=== PATIENT | male | born 1970 | race Two or more races ===

== ENCOUNTER 2017-02-25 23:19 | Emergency (ER) | payer MEDICAID, MEDICARE ==
[~2017-02-25] VITALS: Ht 167.6 cm; Wt 93.4 kg
[~2017-02-25 23:19] MED LIST: HYDR-3326 PO
--- NOTE | 2017-02-26 01:29 | NUR ---
Patient discharged to home in stable conditon. Written and verbal after care instructions given. Patient verbalizes understanding of instructions.
== END 2017-02-26 01:30 | disposition home or self-care (01) ==
LOC: ER 23:25
DX: S62.501B Fracture of unspecified phalanx of right thumb, initial encounter for open fracture (principal); Z88.6 Allergy status to analgesic agent; X58.XXXA Exposure to other specified factors, initial encounter; Y93.89 Activity, other specified; Y99.8 Other external cause status; Y92.89 Other specified places as the place of occurrence of the external cause
CPT/HCPCS: 29125; 73140; 99284; A4663

== ENCOUNTER 2017-11-25 13:48 | Emergency (ER) | payer MEDICARE ==
[~2017-11-25] VITALS: Ht 167.6 cm; Wt 90.7 kg
[2017-11-25 14:36] VITALS: BP 144/88
--- NOTE | 2017-11-25 14:36 | NUR ---
Patient discharged to home in stable conditon. Written and verbal after care instructions given. Patient verbalizes understanding of instructions.
== END 2017-11-25 14:40 | disposition home or self-care (01) ==
LOC: ER 13:48
DX: G89.29 Other chronic pain (principal); M10.9 Gout, unspecified; Z88.5 Allergy status to narcotic agent; Z98.890 Other specified postprocedural states
CPT/HCPCS: A4663

== ENCOUNTER 2019-05-31 04:21 | Emergency (ER) | payer MEDICAID, MEDICARE ==
[~2019-05-31] VITALS: Ht 167.6 cm; Wt 95.3 kg
[2019-05-31] MEDS ORDERED: HYDROMORPHONE 1 MG/1 ML DISP.SYRIN IV ONE (04:45)
[2019-05-31] MEDS ORDERED: IV NORMAL SALINE 1000 ML BAG IV ONE (04:45)
[2019-05-31] MEDS ORDERED: ONDANSETRON 4 MG/2 ML VIAL IV ONE (04:45)
--- NOTE | 2019-05-31 04:45 | NUR ---
Patient ambulated with stable gait. Speech is clear, speaks in complete sentences. No neuro deficits noted. A/Ox4. Patient came for c/o RLQ abd pain with nausea x2 days. Respiratory even and unlabored, no cough no sob.
[2019-05-31] MEDS ORDERED: ONDANSETRON 4 MG/2 ML VIAL ONE (04:56)
[2019-05-31] MEDS ORDERED: HYDROMORPHONE 1 MG/1 ML DISP.SYRIN ONE (04:56)
[2019-05-31 05:00] LABS: BASOPHILS % (AUTO) 0.3 % (0.0-2.0); EOSINOPHILS % (AUTO) 0.2 % (0.0-7.0); HEMATOCRIT 43.6 % (36.7-47.1); HEMOGLOBIN 15.1 g/dL (12.5-16.3); LYMPHOCYTES # (AUTO) 1.4 K/uL (20.0-40.0); LYMPHOCYTES % (AUTO) 11.3 % (20.5-51.5); MEAN CORPUSCULAR HEMOGLOBIN 28.3 uug (23.8-33.4); MEAN CORPUSCULAR HGB CONC 35 g/dL (32.5-36.3); MEAN CORPUSCULAR VOLUME 81.9 fL (73.0-96.2); MONOCYTES # (AUTO) 1.2 K/uL (2.0-10.0); MONOCYTES % (AUTO) 9.4 % (0.0-11.0); NEUTROPHILS # (AUTO) 9.8 K/uL (1.8-8.9); NEUTROPHILS % (AUTO) 78.8 % (38.5-71.5); PLATELET COUNT (AUTO) 233 K/uL (152-348); RED BLOOD CELL COUNT(AUTO) 5.33 MIL/uL (4.06-5.63); WHITE BLOOD COUNT (AUTO) 12.4 K/uL (3.6-10.2)
[2019-05-31 05:11] LABS: CREATININE 1.1 mg/dL (0.6-1.3); POTASSIUM 3.9 mmol/L (3.5-5.1)
[2019-05-31 05:16] LABS: BILIRUBIN,DIRECT 0.2 mg/dL (0.0-0.2); TOTAL PROTEIN, SERUM 8.5 g/dL (6.4-8.2)
[2019-05-31] MEDS ORDERED: IOHEXOL 300MG/ML 100 ML INFUS..BTL ONE (05:24)
[2019-05-31] MEDS ORDERED: SWABABLE VALVE TRANSFER SET EA MC ONE (05:24)
[2019-05-31] MEDS ORDERED: IV NORMAL SALINE 250 ML IV ONE (05:24)
--- NOTE | 2019-05-31 05:27 | NUR ---
US tech, Austyn at bedside for scan.
--- NOTE | 2019-05-31 05:40 | NUR ---
Patient transported down to CT in stable condition.
--- NOTE | 2019-05-31 05:55 | NUR ---
Patient back from CT in stable condition.
[2019-05-31 06:24] LABS: *BILIRUBIN,URIN NEGATIVE (NEGATIVE); *CLARITY,URINE CLEAR (CLEAR); *COLOR,URINE YELLOW (YELLOW); *KETONES,URINE NEGATIVE (NEGATIVE); *UROBILINOGEN,URINE 0.2 E.U./dl (NORMAL); LEUKOCYTE ESTERASE ,URINE NEGATIVE (NEGATIVE); NITRITE, URINE NEGATIVE (NEGATIVE); UGLUCOSE NEGATIVE (NEGATIVE)
[2019-05-31 06:25] LABS: *BLOOD, URINE TRACE (NEGATIVE)
[2019-05-31] MEDS ORDERED: CEFTRIAXONE /D5W 50ML IVPB **ER PYXIS IV ONE (06:26)
[2019-05-31] MEDS ORDERED: NITROFURANTOIN/NITROFURAN MAC 100 MG CAPSULE ONE (06:26)
[2019-05-31 06:30] LABS: BACTERIA,URINE NONE SEEN /HPF (NONE SEEN); MUCUS,URINE FEW /LPF (0-FEW); SQUAMOUS EPITHELIAL CELL,UR FEW /HPF (NONE SEEN); WBC,URINE 0-3 /HPF (0-3)
[2019-05-31] MEDS ORDERED: NITROFURANTOIN/NITROFURAN MAC 100 MG CAPSULE PO ONE (06:30)
[2019-05-31] MEDS ORDERED: CEFTRIAXONE 1 G in IV DEXTROSE 5% 50 ML IV ONE (06:30)
--- NOTE | 2019-05-31 07:12 | NUR ---
REPORT GIVEN TO HECTOR GUTIERREZ
--- NOTE | 2019-05-31 07:59 | NUR ---
IV removed. Catheter intact and site benign. Pressure and 4x4 gauze applied to site. No bleeding noted.
[2019-05-31 08:00] VITALS: BP 133/80
--- NOTE | 2019-05-31 08:01 | NUR ---
Patient discharged to home in stable conditon. Written and verbal after care instructions given. Patient verbalizes understanding of instructions.
== END 2019-05-31 08:01 | disposition home or self-care (01) ==
LOC: ER 04:24
DX: R10.31 Right lower quadrant pain (principal); R10.11 Right upper quadrant pain; R11.0 Nausea; Z88.8 Allergy status to other drugs, medicaments and biological substances
CPT/HCPCS: 36415; 71045; 74177; 76705; 80048; 80076; 81000; 81001; 83690; 85025; 85730; 87086; 93005; 96365; 96375; 99284; J0696; J1170; J2405; Q9967; A4663; J7030; J7050; J7060

== ENCOUNTER 2019-06-06 17:11 | Emergency (ER) | payer MEDICAID, MEDICARE ==
[~2019-06-06] VITALS: Ht 167.6 cm; Wt 95.3 kg
[2019-06-06] MEDS ORDERED: predniSONE 50 MG TABLET PO ONE (17:12)
[2019-06-06] MEDS ORDERED: predniSONE 10 MG TABLET PO ONE ×2 (17:12→17:30)
[2019-06-06] MEDS ORDERED: FAMOTIDINE 20 MG TABLET PO ONE (17:30)
[2019-06-06] MEDS ORDERED: diphenhydrAMINE 50 MG/1 ML VIAL IM ONE (17:30)
--- NOTE | 2019-06-06 18:13 | NUR ---
PT WAS EVALUATED BY DR CONWAY. PT WAS D/C'd TO HOME. D/C INSTRUCTIONS GIVEN TO THE PT.
[2019-06-06 18:14] VITALS: BP 136/88
== END 2019-06-06 18:15 | disposition home or self-care (01) ==
LOC: ER 17:11
DX: L50.9 Urticaria, unspecified (principal); Z88.5 Allergy status to narcotic agent
CPT/HCPCS: 96372; 99283; J1200; J7512 ×2; A4663